=== PATIENT | male | born 1960 | race Caucasian/White ===

== ENCOUNTER → 2020-12-06 | Outpatient (CLI) | payer OTHER ==
[~2020-12-06] MED LIST: ATORVASTATIN CA20 MG PO; ELIQUIS 2.5 MG2.5 MG PO; FOLIC ACID1 MG PO; GABAPENTIN300 MG PO; HYDROCHLOROTHIA25 MG PO; LISINOPRIL20 MG PO; NORCO 7.5-3251 EACH PO; ULTRAM50 MG PO
== END ==
LOC: KOH-I 09:16
DX: M54.9 Dorsalgia, unspecified (principal); M47.816 Spondylosis without myelopathy or radiculopathy, lumbar region
CPT/HCPCS: 72070; 72110

== ENCOUNTER → 2021-01-27 | Outpatient (CLI) | payer OTHER | LOC: KOH-I 01-20 09:45 | DX: M54.5 Low back pain (principal); M51.86 Other intervertebral disc disorders, lumbar region; M51.87 Other intervertebral disc disorders, lumbosacral region; M48.061 Spinal stenosis, lumbar region without neurogenic claudication; M48.07 Spinal stenosis, lumbosacral region | CPT/HCPCS: 72148 ==

== ENCOUNTER 2021-05-25 16:01 | Emergency (ER) | payer OTHER ==
[2021-05-25 16:33] LABS: HEMOGLOBIN 14.7 gm/dl (14.0-17.5); RED BLOOD COUNT 4.55 M/UL (4.20-5.50); WHITE BLOOD COUNT 5.3 K/UL (4.5-11.0)
[2021-05-25 17:01] LABS: BUN/CREATININE RATIO 25 (0-10)
== END 2021-05-25 18:15 | disposition home or self-care (01) ==
LOC: ER1 16:01
PROVIDERS: Physician Assistant
DX: I10 Essential (primary) hypertension (principal); R51.9 Headache, unspecified
CPT/HCPCS: 70450; 71045; 80053; 82550; 82553; 83874; 84484; 85025; 93005; 96374; 99284; J0360